=== PATIENT | female | born 1975 | race African-American/Black ===

== ENCOUNTER 2017-11-04 13:18 | Emergency (ER) | payer SELFPAY ==
[~2017-11-04 13:18] MED LIST: MOBI7.5T PO
[2017-11-04 13:20] VITALS: BP 134/78; PULSE 59; RESP 14; TEMP 98.4; O2SAT 99
--- NOTE | 2017-11-04 14:29 | PD ---
HPI Chief Complaint: Musculoskeletal Complaint Time Seen by Provider: 14:08 Travel History International Travel<30 days: No Contact w/Intl Traveler<30days: No Traveled to known affect area: No History of Present Illness HPI 42-year-old female presents to emergency department complaining of right elbow pain that started yesterday after she was fully some sheets. Patient states that she felt a pull on the lateral aspect of her elbow and has had pain ever since. Patient denies trauma, weakness, tingling, numbness. States that she has full flexion but is unable to fully extend her elbow without pain. She does have full range of motion of her fingers wrists and shoulders. States that she does not have a preference of sleeping position. Denies fever, chills , chest pain, shortness of breath. 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 acetaminophen (Unverified Adverse Reaction, Unknown, Abdominal pain , 06/10) codeine (Unverified Adverse Reaction, Unknown, Abdominal pain , 06/10/17) Reported Meds & Prescriptions Reported Meds & Active Scripts Active Mobic (Meloxicam) 7.5 Mg Tab 7.5 Mg PO DAILY Review of Systems Except as stated in HPI: all other systems reviewed are Neg Physical Exam Narrative GENERAL: Well-nourished, well-developed patient. SKIN: Focused skin assessment warm/dry. HEAD: Normocephalic. EYES: No scleral icterus. No injection or drainage. NECK: Supple, trachea midline. No JVD or lymphadenopathy. CARDIOVASCULAR: Regular rate and rhythm without murmurs, gallops, or rubs. RESPIRATORY: Breath sounds equal bilaterally. No accessory muscle use. MUSCULOSKELETAL: No cyanosis, or edema. Right elbow- TTP over the lateral epicondyles and brachial radialis muscle. Full flexion and extension of elbow without popping or clicking. Patient of forearm demonstrates mild tenderness to the lateral epicondyle BACK: Nontender without obvious deformity. No CVA tenderness. Data Data Last Documented VS Vital Signs Date Time Temp Pulse Resp B/P (MAP) Pulse Ox O2 Delivery O2 Flow Rate FiO2 11/04/17 13:20 98.4 59 14 134/78 (96) 99 MDM Medical Decision Making Medical Screen Exam Complete: Yes Emergency Medical Condition: Yes Differential Diagnosis Right elbow Lateral epicondylitis, elbow strain, fracture Narrative Course 42-year-old female presents to emergency department complaining of right elbow pain that started yesterday after she was fully some sheets. Patient states that she felt a pull on the lateral aspect of her elbow and has had pain ever since. Patient denies trauma, weakness, tingling, numbness. States that she has full flexion but is unable to fully extend her elbow without pain. She does have full range of motion of her fingers wrists and shoulders. States that she does not have a preference of sleeping position. Denies fever, chills , chest pain, shortness of breath. Vital signs stable. Physical exam findings consistent with lateral epicondylitis. Discussed with patient the proper treatment and recommendations regarding this diagnosis. Patient states that she does not have primary care physician. I recommend she follow up with [facility]. A medical screening exam was performed: At the time of evaluation the presenting medical condition was determined not to be of an emergent nature. The patient was given the option of receiving additional care, but declined. Patient was given options for additional community resources from which to obtain care. The Patient Has Been advised to seek medical attention for their presenting complaint. The patient has been advised to return to the ER at any time if an emergent condition develops. Diagnosis Primary Impression: Encounter for medical screening examination Disposition: 01 DISCHARGE HOME Condition: Stable Shonda Pate Nov 04, 2017 14:29
== END 2017-11-04 14:29 | disposition left against medical advice (07) ==
LOC: NEPK 13:18
DX: M25.521 Pain in right elbow (principal)
CPT/HCPCS: 99281; 99282

== ENCOUNTER 2017-12-09 08:55 | Emergency (ER) | payer SELFPAY ==
[~2017-12-09] VITALS: Ht 160 cm; Wt 94.5 kg
[2017-12-09 08:56] VITALS: BP 122/78; PULSE 70; RESP 16; TEMP 99.1; O2SAT 99
--- NOTE | 2017-12-09 09:26 | PD ---
HPI . Diarrhea Chief Complaint: GI Complaint Time Seen by Provider: 09:07 Travel History International Travel<30 days: No Contact w/Intl Traveler<30days: No Traveled to known affect area: No History of Present Illness HPI Patient presents complaining with the acute onset of nausea, vomiting and diarrhea. It started last night. She is also complaining with some diffuse abdominal pain which she rates 3/10. No modifying factors. She reports one episode of emesis and 10 episodes of brown watery diarrhea. No recent antibiotics. She states that her grandson was seen here as a patient yesterday with similar symptoms. She denies any urinary tract symptoms and states that she is urinating normally. PFSH Past Medical History Asthma: Yes Heart Rhythm Problems: No Cancer: No Cardiovascular Problems: Yes (family heart issues) High Cholesterol: No Chemotherapy: No Chest Pain: No Congestive Heart Failure: No COPD: No Diminished Hearing: No Endocrine: No Genitourinary: No Hypertension: Yes Immune Disorder: No Musculoskeletal: No Neurologic: No Psychiatric: No Reproductive: No Respiratory: Yes Radiation Therapy: No Sleep Apnea: No ?: Not LMP: 12/01/17 : 5 Para: 5 Miscarriage: 0 : 0 Past Surgical History Cholecystectomy: Yes Other Surgery: Yes (SEVERAL I/D FOR MRSA ) Social History Alcohol Use: No Tobacco Use: No Substance Use: No Allergies-Medications (Allergen,Severity, Reaction): Coded Allergies: *MDRO Multi-Drug Resistant Organism (Unverified Adverse Reaction, Unknown , 04/09/16) MRSA wound 2010. acetaminophen (Unverified Adverse Reaction, Unknown, Abdominal pain , 06/10) codeine (Unverified Adverse Reaction, Unknown, Abdominal pain , 06/10/17) Reported Meds & Prescriptions Reported Meds & Active Scripts Active Mobic (Meloxicam) 7.5 Mg Tab 7.5 Mg PO DAILY Review of Systems Except as stated in HPI: all other systems reviewed are Neg General / Constitutional: No: Fever, Chills Gastrointestinal: Positive: Nausea, Vomiting, Diarrhea, Abdominal Pain Genitourinary: No: Urgency, Frequency, Dysuria, Decreased Urinary Output Physical Exam Narrative GENERAL: Well-appearing woman in no acute distress. SKIN: warm/dry. Normal color and turgor. HEAD: Normocephalic. Atraumatic. EYES: Pupils equal and round. No scleral icterus. No injection or drainage. ENT: No nasal bleeding or discharge. Mucous membranes pink and moist. NECK: Trachea midline. Full range of motion without pain.. CARDIOVASCULAR: Regular rate and rhythm. Heart sounds normal. RESPIRATORY: No accessory muscle use. Clear to auscultation. Breath sounds equal bilaterally. GASTROINTESTINAL: Abdomen soft. Nontender. Bowel sounds present. Nondistended. MUSCULOSKELETAL: No obvious deformities. NEUROLOGICAL: Awake and alert. No obvious cranial nerve deficits. Motor grossly within normal limits. Normal speech. PSYCHIATRIC: Appropriate mood and affect; insight and judgment normal. Data Data Last Documented VS Vital Signs Date Time Temp Pulse Resp B/P (MAP) Pulse Ox O2 Delivery O2 Flow Rate FiO2 12/09/17 08:56 99.1 70 16 122/78 (93) 99 Room Air MDM Medical Decision Making Medical Screen Exam Complete: Yes Emergency Medical Condition: Yes Differential Diagnosis Differential diagnosis of diarrhea includes but is not limited to early enteritis, bacterial enteritis, antibiotic induced diarrhea, irritable bowel syndrome Narrative Course This patient presents with the acute onset of abdominal pain associated with nausea, vomiting and diarrhea. Diarrhea is her worst symptom. She does not appear to be dehydrated. She has a benign abdominal exam. The history, exam, diagnostic testing, and current condition do not suggest any significant pathology to warrant further testing, continued ED treatment, admission, or surgical evaluation at this point. No EMC was found. The patient 's condition is stable and appropriate for discharge. Diagnosis Primary Impression: Gastroenteritis Patient Instructions: Gastroenteritis (DC), General Instructions Additional Instructions: The most important thing created to do is to make sure that she stay well hydrated. Try to drink small amounts of fluids very frequently. Disposition: 01 DISCHARGE HOME Condition: Stable Laurita Noyola MD Dec 09, 2017 09:26
== END 2017-12-09 09:56 | disposition home or self-care (01) ==
LOC: NEPD 08:55
DX: K52.9 Noninfective gastroenteritis and colitis, unspecified (principal); J45.909 Unspecified asthma, uncomplicated; I10 Essential (primary) hypertension; Z88.5 Allergy status to narcotic agent; Z88.6 Allergy status to analgesic agent
CPT/HCPCS: 99282